=== PATIENT | male | born 1930 | race Caucasian/White ===

== ENCOUNTER → 2016-04-09 | Day surgery (SDC) | payer MEDICARE ==
[~2016-04-09] MED LIST: ACETAMINOPHEN 1000 MG/100 ML VIAL IV ONE; AMLO10 PO; ASAC800T PO; ASPI81CH37 CHEW; BUPIVACAINE/EPINEPHRINE 0.25% 50 ML VIAL ONE; IBUP-232 PO; LACTATED RINGER'S 1000 ML INJ 1,000 ML ONE; LIDOCAINE 1%/EPINEPHrine 1:100,000 SOLN 20 ML VIAL ONE; LISI-515 PO; METO25TA6 PO; MINERAL OIL 10 ML VIAL ONE; NEOMYCIN/POLYMYXIN/BACITRACIN OINT 15 GM TUBE ONE; PROPOFOL 200 MG/20 ML AMP IV ONE; SODIUM CHLORID 0.9% 500 ML INJ 500 ML IV ONE; VANCOMYCIN 500 MG VIAL ONE
--- NOTE | 2016-04-09 10:20 | TN ---
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 PROCEDURE Wide local excision resulting in a defect including the lesion of the right leg 7 x 5 cm. This required a split-thickness skin graft totaling 35 sq cm. The right upper chin lesion defect 2 x 2 cm primary and the lower chin was 2 x 2cm primary. Secondary defect of upper chin was 2x3 and lower chin was 2x4 cm. ANESTHESIA LMA general plus a total of 30 cc of 1% lidocaine with epinephrine. PROCEDURE After the patient was properly consented, marked and anesthetized, the skin was sterilized with Microcyn and sterile draping applied. The incision was carried out of the lesions on the chin including 0.2-0.3 mm of margin and specimens with margins and sent to pathology for permanent analysis. With this, a V to Y tissue rearrangement reconstruction was elevated along the risk intention lines and inset utilizing 5-0 Monocryl suture and 5-0 fast absorbing gut. The secondary defect of the upper chin was 2 x 3 and the secondary defect for the lower chin was 2 x 4 cm. Attention was directed to the right lower leg where a spread out basal cell carcinoma was properly excised with at least a half centimeter in diameter and sent to pathology for permanent analysis. A split thickness skin graft was harvested from the right upper thigh and harvested to 13 thousands of an inches, meshed one-to-one and put into recipient site totaling 35 sq cm and secured in place utilizing Xeroform gauze, bacitracin ointment, surgical nicolas and Nemacolin foam. The unused skin was returned back to the donor site. Overall, the patient tolerated the procedure well, absorbent dressings applied. The patient tolerated the procedure well. MD ESEQUIEL Baxter/REJI /10:04 AM /10:11 AM GLORIA
== END | disposition home or self-care (01) ==
LOC: ESDC 07:51
PROVIDERS: ATTEND Plastic Surgery
DX: C44.712 Basal cell carcinoma of skin of right lower limb, including hip (principal); C44.319 Basal cell carcinoma of skin of other parts of face
CPT/HCPCS: 00300; 00400; 11606; 14041; 15100; 88305; J0131; J3010; J3370; J7040; J7120

== ENCOUNTER 2017-01-02 11:03 | Emergency (ER) | payer MEDICARE ==
[~2017-01-02] VITALS: Ht 167.6 cm; Wt 71.0 kg
[~2017-01-02 11:03] MED LIST changes: -ACETAMINOPHEN 1000 MG/100 ML VIAL IV ONE; -BUPIVACAINE/EPINEPHRINE 0.25% 50 ML VIAL ONE; +GABA300C5 PO; -LACTATED RINGER'S 1000 ML INJ 1,000 ML ONE; -LIDOCAINE 1%/EPINEPHrine 1:100,000 SOLN 20 ML VIAL ONE; -MINERAL OIL 10 ML VIAL ONE; -NEOMYCIN/POLYMYXIN/BACITRACIN OINT 15 GM TUBE ONE; -PROPOFOL 200 MG/20 ML AMP IV ONE; -SODIUM CHLORID 0.9% 500 ML INJ 500 ML IV ONE; -VANCOMYCIN 500 MG VIAL ONE
[2017-01-02 11:12] VITALS: BP 174/75; PULSE 68; RESP 16; TEMP 97.9; O2SAT 98
--- NOTE | 2017-01-02 11:33 | PD ---
HPI Chief Complaint: Musculoskeletal Complaint Time Seen by Provider: 11:18 Travel History International Travel<30 days: No Contact w/Intl Traveler<30days: No Traveled to known affect area: No History of Present Illness HPI This patient complains of right calf pain for one month. No injury. It comes and goes. It's not pain radiating down from his chronic low back pain. He spoke with his physician who told him to come here and get an ultrasound to rule out blood clot. He has no history of DVT. Denies fever. Symptoms severity is mild. No alleviating factors. No exacerbating factors. PFSH Past Medical History Hx Anticoagulant Therapy: Yes (BABY ASA DAILY) Arthritis: Yes Asthma: No Autoimmune Disease: No Blood Disorders: No Heart Rhythm Problems: No Cancer: Yes (GASTRIC, PROSTATE, SKIN) Cardiovascular Problems: Yes (AK, HTN) High Cholesterol: Yes Chemotherapy: No Chest Pain: No Congestive Heart Failure: No COPD: No Cerebrovascular Accident: No Diabetes: No Diminished Hearing: No Endocrine: No Gastrointestinal Disorders: Yes (GASTRIC CANCER/ GI BLEED, GERD) GERD: Yes Glaucoma: No Genitourinary: Yes Headaches: No Hepatitis: No Hiatal Hernia: No Hypertension: Yes Immune Disorder: No Kidney Stones: Yes Musculoskeletal: Yes (LEFT THUMB PAIN (TRAUMA), ARTHRITIS) Neurologic: Yes (NEUROPATHY ALL FINGERTIPS, NUMB RIGHT LEG) Psychiatric: No Reproductive: No Respiratory: No Migraines: No Myocardial Infarction: Yes Radiation Therapy: No Renal Failure: No Sleep Apnea: No Thyroid Disease: No Past Surgical History Abdominal Surgery: Yes (PARTIAL GASTRECTOMY, APPY) AICD: No Appendectomy: Yes Arteriovenous Shunt: No Cardiac Surgery: No Coronary Stent: Yes Ear Surgery: No Endocrine Surgery: No Eye Surgery: No Genitourinary Surgery: No Gynecologic Surgery: No Insulin Pump: No Joint Replacement: Yes (ALYCIA. KNEES) Oral Surgery: No Pacemaker: No Thoracic Surgery: No Other Surgery: Yes Social History Alcohol Use: No Tobacco Use: No Substance Use: No Allergies-Medications (Allergen,Severity, Reaction): Coded Allergies: ciprofloxacin (Unverified Allergy, Severe, HIVES, 01/02/17) diatrizoate meglumine (Unverified Allergy, Severe, Rash, 01/02/17) gadobenic acid (Unverified Allergy, Severe, Rash, 01/02/17) gadodiamide (Unverified Allergy, Severe, Rash, 01/02/17) gadoteridol (Unverified Allergy, Severe, Rash, 01/02/17) iodine (Unverified Allergy, Severe, 01/02/17) iodixanol (Unverified Allergy, Severe, Rash, 01/02/17) iohexol (Unverified Allergy, Severe, Rash, 01/02/17) potassium iodide (Unverified Allergy, Severe, 01/02/17) povidone-iodine (Unverified Allergy, Severe, 01/02/17) sodium iodide (Unverified Allergy, Severe, 01/02/17) sodium iodide (Unverified Allergy, Severe, 01/02/17) penicillin G (Unverified Allergy, Mild, Hives, 01/02/17) Reported Meds & Prescriptions Reported Meds & Active Scripts Active Reported Aspirin Low Dose (Aspirin) 81 Mg Chew 81 Mg CHEW DAILY Lisinopril 20 Mg Tab 20 Mg PO DAILY Metoprolol Succinate ER 24 HR (Metoprolol Succinate) 25 Mg Tab 12.5 Mg PO DAILY Asacol HD (Mesalamine) 800 Mg Tab 1,600 Mg PO TID Swallow whole. Take on an empty stomach. Norvasc (Amlodipine Besylate) 10 Mg Tab 10 Mg PO DAILY Review of Systems General / Constitutional: No: Fever Eyes: No: Visual changes HENT: No: Headaches Cardiovascular: No: Chest Pain or Discomfort Respiratory: No: Shortness of Breath Gastrointestinal: No: Abdominal Pain Genitourinary: No: Dysuria Musculoskeletal: Positive: Myalgias, Pain Skin: No Rash Neurologic: No: Weakness Psychiatric: No: Depression Endocrine: No: Polydipsia Hematologic/Lymphatic: No: Easy Bruising Physical Exam Narrative SKIN: Focused skin assessment reveals no rash or ulcers. Skin is warm and dry. Palpation shows no induration or nodules. Psych: Normal mood and affect. Normal insight and judgment. Right leg: No Tenderness or erythema or warmth. No edema. Neurovascularly intact Data Data Last Documented VS Vital Signs Date Time Temp Pulse Resp B/P (MAP) Pulse Ox O2 Delivery O2 Flow Rate FiO2 01/02/17 11:12 97.9 68 16 174/75 (108) 98 Orders Orders Us Leg Venous Doppler (01/02/17 ) MDM Medical Decision Making Medical Screen Exam Complete: Yes Emergency Medical Condition: Yes Medical Record Reviewed: Yes Differential Diagnosis Myalgia, DVT, muscle injury Narrative Course I have reviewed the patient's electronic medical record. Patient has right calf pain for one month and his physician wants an ultrasound to rule out DVT. No objective findings on exam I've ordered a ultrasound of the right leg. It is negative. Diagnosis Primary Impression: Right calf pain Additional Instructions: The patient was advised to follow up with their physician and return if they worsen. Disposition: 01 DISCHARGE HOME Condition: Stable Adriel Dalton MD Jan 02, 2017 11:33
--- NOTE | 2017-01-02 12:40 | RADRPT ---
EXAM DATE/TIME: 01/02/2017 12:04 [facility] COMPARISON: No previous studies available for comparison. INDICATIONS : Right calf pain. MEDICAL HISTORY : Hypertension. Hypercholesterolemia. Gastroesophageal reflux disease. Myocardial infarction. Tuber culosis. Carcinoma, stomach. Carcinoma, prostate. Kidney stones. Arthritis. Carcinoma, skin. SURGICAL HISTORY : Appendectomy. Prostatectomy. Coronary stent. Partial gastrectomy. Total knee replacement, bilater al. ENCOUNTER: Initial ACUITY: 1 month PAIN SCORE: 8/10 LOCATION: Right leg. TECHNIQUE: Venous ultrasound of the leg was performed from the inguinal ligament to the proximal calf. Real-jing e, color Doppler and spectral tracing, compression and augmentation techniques were used. FINDINGS: There is normal compressibility of the deep venous system from the inguinal region to the proximal ca lf. No echogenic clot is seen in the lumen of the common femoral, femoral, popliteal, and posterior tibial veins. There is a normal response of the venous system to proximal and distal augmentation an d respiration. CONCLUSION: Normal examination. Jarrett Arana MD on January 02, 2017 at 12:38 Board Certified Radiologist. This report was verified electronically.
== END 2017-01-02 13:29 | disposition home or self-care (01) ==
LOC: PHED 11:03
DX: M79.661 Pain in right lower leg (principal)
CPT/HCPCS: 93971; 99284